=== PATIENT | female | born 1985 | race Caucasian/White ===

== ENCOUNTER 2018-11-22 11:28 | Day surgery (SDC) | payer OTHER ==
[~2018-11-22] VITALS: Ht 154.9 cm; Wt 105.2 kg
[2018-11-22] VITALS (18 sets, daily range): BP systolic 107–126; BP diastolic 63–88; PULSE 56–88; RESP 16–21; Ht 154.9 cm; Wt 105.2 kg
[~2018-11-22 11:28] MED LIST: BUPIVACAINE 0.5%/EPI (SDV) 30 ML INJ INJ ONE; CEFAZOLIN 1 GM INJ ONE; CEFAZOLIN 2 GM/50 ML (PMX) 50 ML IVPB ONE; SOD CHLORIDE 0.9% 1,000 ML IV SCH
[2018-11-22] MEDS ORDERED: BUPIVACAINE 0.5%/EPI (SDV) 30 ML INJ ONE (13:10)
--- NOTE | 2018-11-22 13:19 | PREAC ---
Date/Time of Note Date/Time of Note DATE: 11/22/18 TIME: 13:18 Anesthesia Eval and Record Evaluation Time Pre-Procedure Interview DATE: 11/22/18 TIME: 13:18 Age 33 Sex female NPO: 8 hrs Preoperative diagnosis cholelithiasis Planned procedure laparoscopic cholecystectomy Past Medical History Past Medical History: Includes Neuro: CVA (history of stroke with right side weakness) GI: Morbid obesity Surgery & Anesthesia Issues No known issue Meds Anticoagulation: No Beta Valentina within 24 hr: No Reason Beta Valentina not given: Pt. not on B-Valentina No Active Prescriptions or Reported Meds Current Medications Sodium Chloride 1,000 ml @ 75 mls/hr [id number] IV ; Start 11/22/18 at 11:00; Stop 11/23/18 at 00:19 Meds reviewed: Yes Allergies Coded Allergies: No Known Drug Allergy (Unverified Allergy, Unknown, 11/22/18) Allergies Reviewed: Yes Labs/Studies Labs Reviewed: Reviewed by anesthesiologist test: Negative Pre-procedure Exam Last vitals Vital Signs Date Temp Pulse Resp B/P (MAP) Pulse Ox O2 O2 Flow FiO2 Time Delivery Rate 11/22/18 98.5 65 16 107/70 100 Room Air 12:14 (82) Airway: Adequate mouth opening, Adequate thyromental dist Mallampati: Mallampati II Teeth: Normal Lung: Normal Heart: Normal ASA Physical Status ASA physical status: 3 Emergency: None Planned Anesthetic General/MAC: ETT Nerve block: TAP (bilateral) Planned Pain Management Single shot nerve block, Parenteral pain med Pre-operative Attestations Prior to commencing anesthesia and surgery, the patient was re-evaluated, there was verification of: *The patient's identity *The results of appropriate recent lab work and preoperative vital signs *The above evaluation not changing prior to induction *Anesthetic plan, risk benefits, alternative and complications discussed with patient/family; questions answered; patient/family understands, accepts and wishes to proceed. LETHA BELLAMY MD Nov 22, 2018 13:19
[2018-11-22] MEDS ORDERED: PROPOFOL 20 ML ONE ×2 (13:23→14:15)
[2018-11-22] MEDS ORDERED: LIDOCAINE 2% (SDV) 5 ML INJ ONE (13:23)
[2018-11-22] MEDS ORDERED: ROCURONIUM 50 MG INJ ONE ×2 (13:23→14:15)
[2018-11-22] MEDS ORDERED: ROPIVACAINE 0.5 % 30 ML VIAL ONE (13:23)
[2018-11-22] MEDS ORDERED: SUCCINYLCHOLINE CHLORIDE 100 MG/5 ML SYG IV ONE (13:23)
--- NOTE | 2018-11-22 13:41 | HPN ---
Date/Time of Note Date/Time of Note DATE: 11/22/18 TIME: 13:41 Interval H&P Admission Note Pt. seen H&P reviewed: No system changes MARCO HERNANDEZ MD Nov 22, 2018 13:41
[2018-11-22] MEDS ORDERED: MIDAZOLAM 1 MG/ML 2 ML INJ ONE (13:54)
[2018-11-22] MEDS ORDERED: ONDANSETRON 4 MG INJ ONE (14:17)
[2018-11-22] MEDS ORDERED: FAMOTIDINE 20 MG INJ ONE (14:17)
[2018-11-22] MEDS ORDERED: DEXAMETHASONE 4 MG/ML 5 ML INJ ONE (14:17)
[2018-11-22] MEDS ORDERED: HYDROmorphONE 2 MG/ML SYG ONE (14:36)
[2018-11-22] MEDS ORDERED: BUPIVACAINE 0.5%/EPI (SDV) 30 ML INJ INJ ONE (14:48)
[2018-11-22] MEDS ORDERED: HYDROmorphONE 1 MG/5 ML IV SYRINGE IV PRN ×2 (15:00)
[2018-11-22] MEDS ORDERED: ONDANSETRON 4 MG INJ IV PRN ×2 (15:00→15:30)
[2018-11-22] MEDS ORDERED: FENTAnyl 50 MCG/ML VIAL IV PRN ×3 (15:00)
[2018-11-22] MEDS ORDERED: MEPERIDINE 25 MG INJ IV PRN (15:00)
[2018-11-22] MEDS ORDERED: PROCHLORPERAZINE 10 MG INJ IV PRN (15:00)
[2018-11-22] MEDS ORDERED: DIPHENHYDRAMINE 50 MG INJ IV PRN (15:00)
[2018-11-22] MEDS ORDERED: OXYCODONE/ACETAMINOPHEN (5/325) TAB PO PRN (15:00)
[2018-11-22] MEDS ORDERED: GLYCOPYRROLATE 0.4 MG INJ ONE ×2 (15:14→15:23)
[2018-11-22] MEDS ORDERED: NEOSTIGMINE 3 MG/3 ML SYRINGE ONE ×2 (15:14→15:23)
[2018-11-22] MEDS ORDERED: KETOROLAC 30 MG INJ ONE (15:26)
[2018-11-22] MEDS ORDERED: morphine 2 MG INJ IV PRN (15:30)
[2018-11-22] MEDS ORDERED: HYDROCODONE/APAP (5/325) TAB PO PRN ×2 (15:30)
--- NOTE | 2018-11-22 15:37 | OPR ---
Date/Time of Note Date/Time of Note DATE: 11/22/18 TIME: 15:32 Operative Report Procedure Date: Nov 22, 2018 Preoperative Diagnosis Cholelithiasis/chronic cholecystitis Postoperative Diagnosis Cholelithiasis/chronic cholecystitis Operation/Procedure Performed Laparoscopic cholecystectomy Surgeon see signature line Optical Laboratory Manager None Anesthesia Type: general Anesthesiologist: LETHA BELLAMY MD Estimated Blood Loss: minimal Transfusion none Specimen Gallbladder Grafts/Implants none Complications none Pt Condition Post Procedure: stable Disposition: PACU Indications The patient is a morbidly obese 33-year-old female with a known history of gallstone disease who presented to the office with increasing right upper quadrant abdominal pain. The patient had clinical signs and symptoms of biliary colic and chronic cholecystitis which was confirmed via an ultrasound which showed the presence of gallstones. The patient was scheduled for laparoscopic cholecystectomy; possible open as definitive treatment to prevent further sequelae of gallstone disease which include but are not limited to: Gangrenous cholecystitis, choledocholithiasis, gallstone pancreatitis, ascending cholangitis, etc. All risks and benefits of the procedure including but not limited to: Wound infection, excessive bleeding, common bile duct injury, postoperative biliary leak, retained common bile duct stone, injury to intra- abdominal organs, conversion to open procedure, possible need for subsequent surgeries, etc. were all explained to the patient in full detail. She fully understood and wished to proceed with the procedure. Informed consent was therefore obtained. Procedure Description The patient was brought to the operating room and placed supine on the operating table. Bilateral sequential compression devices were placed on both lower extremities. A dose of broad-spectrum perioperative intravenous antibiotics was given. After the induction of smooth general endotracheal anesthesia the patient's abdomen was prepped and draped in the standard surgical fashion. A tap block was performed by the anesthesiologist and will be documented by her separately. After performance of the surgical timeout a 5 mm incision was made in the superior umbilicus and a Veress needle was used to access the intra- abdominal cavity atraumatically. Pneumoperitoneum was then obtained and the Veress needle was exchanged for a 5 mm trocar through which a 5 mm laparoscope was placed. Three further working ports were then placed a 12 mm port in the sub-xiphoid region and two 5 mm ports in the right upper quadrant. All port sites were anesthetized with 0.25% Marcaine with epinephrine prior to incision. Using atraumatic graspers the gallbladder was grasped and retracted superiorly and laterally exposing the area of Jesus's pouch. Large stone was identified in the neck of the gallbladder. Dissection was begun in this area using a co mbination of blunt dissection and hook electrocautery. The cystic duct was identified as it entered straight into the neck of the gallbladder. There was a lot of fat and chronic adhesions around the cystic duct. Cystic duct was tediously dissected free of surrounding tissues and clipped proximally and distally x 3 and transected using EndoShears. Dissection was then continued pos teriorly. The cystic artery was identified and dissected free of surrounding tissues. It too was clipped proximally and distally x 3 and transected using EndoShears. The gallbladder was then dissected off the liver bed using electrocautery. There was dense chronic fibrosis of the gallbladder to the liver bed. Once completely free the gallbladder was placed in an Endo Catch bag and withdrawn through the subxiphoid port site and passed off the field as specimen. Hemostasis was then inspected for and noted to be adequate. The abdomen was then irrigated with several liters of warm normal saline and the irrigant returned crystal clear. The fascia of the subxiphoid port site was then reapproximated using a danyell-close device. Pneumoperitoneum was then release d and all remaining trochars were withdrawn under direct vision. The subcutaneous tissues were irrigated with more warm normal saline and further local anesthesia was applied around the skin of the incision sites. The skin was then reapproximated using 4-0 Monocryl sutures in subcuticular fashion. The incisions were cleaned and Dermabond was applied to the incisions and the patie nt was awoken from anesthesia and transported to the recovery room in stable condition. All counts were correct at the end of the case x 2. MARCO HERNANDEZ MD Nov 22, 2018 15:37
[2018-11-22] MEDS: HYDROmorphONE 1 MG/5 ML IV SYRINGE IV PRN ×2 (15:40→15:52)
[2018-11-22] MEDS ORDERED: morphine 4 MG/ML VIAL IV PRN (16:00)
--- NOTE | 2018-11-23 00:06 | PAC ---
Date/Time of Note Date/Time of Note DATE: 11/23/18 TIME: 00:05 Post-Anesthesia Notes Post-Anesthesia Note Last documented vital signs Vital Signs Date Temp Pulse Resp B/P (MAP) Pulse Ox O2 O2 Flow FiO2 Time Delivery Rate 11/22/18 88 19 122/81 97 Room Air 18:25 (95) 11/22/18 98.6 15:37 Activity: WNL Respiratory function: WNL Cardiovascular function: WNL Mental status: Baseline Pain reasonably controlled: Yes Hydration appropriate: Yes Nausea/Vomiting absent: Yes LETHA BELLAMY MD Nov 23, 2018 00:06
== END 2018-11-22 18:50 | disposition home or self-care (01) ==
LOC: SDS 11:28
PROVIDERS: ATTEND Surgery
DX: K81.1 Chronic cholecystitis (principal); Z86.73 Personal history of transient ischemic attack (TIA), and cerebral infarction without residual deficits; E66.01 Morbid (severe) obesity due to excess calories; Z68.41 Body mass index [BMI] 40.0-44.9, adult
CPT/HCPCS: 47562; J1100; J1170; J1885; J2250; J2405; J2710; J2795; Z7512; Z7610; 88304; J0690